=== PATIENT | female | born 1980 | race Caucasian/White ===

== ENCOUNTER → 2021-12-01 | Outpatient (CLI) | payer BC ==
[~2021-12-01] MED LIST: CHEWABLE-VITE1 EACH PO; ELIQUIS2.5 MG PO; GLUCOPHAGE500 MG PO; MOBIC15 MG PO; PERCOCET 5/325 T1 EA PO; ZESTRIL2.5 MG PO; [UNRECOGNIZED DRUG - OTHER] PO; [UNRECOGNIZED DRUG - OTHER] PO
== END ==
LOC: SLEEP 13:36
DX: R06.83 Snoring (principal); K21.9 Gastro-esophageal reflux disease without esophagitis; G47.63 Sleep related bruxism
CPT/HCPCS: 95810